=== PATIENT | female | born 1970 | race Two or more races ===

== ENCOUNTER 2018-12-09 19:40 | Observation (INO) | payer BC ==
--- NOTE | 2018-12-09 21:27 | ULT ---
Right upper quadrant ultrasound: 12/09/2018 COMPARISON: None HISTORY: Right upper quadrant pain TECHNIQUE: Multiplanar grayscale sonographic imaging of the right upper quadrant obtained. FINDINGS: Imaged pancreas unremarkable, partially obscured by bowel gas. No focal liver lesion or int rahepatic biliary dilatation. Right kidney measures 12.7 cm in craniocaudal dimension and demonstrates no stone, hydronephrosis, or mass. There is a prominent shadowing stone within the gallbladder lumen measuring 3.4 cm. The common bile d uct measures 4 mm, within normal limits. The gallbladder is difficult to visualize on this examination secondary to body habitus and shadowing stone. There is probable mild gallbladder wall thickening measuring in the 4-5 mm range. The director internal control reports a positive Ramos's sign. IMPRESSION: Cholelithiasis with probable gallbladder wall thickening and positive Ramos's sign are s uspicious for acute cholecystitis.
[2018-12-09] MEDS ORDERED: Morphine 4 MG/ML VIAL ONE (22:28)
[2018-12-09] MEDS ORDERED: Piperacillin/Tazobactam 3.375 GM VIAL ONE (22:29)
[2018-12-09] MEDS ORDERED: Ondansetron ODT 4 MG TAB SL PRN (23:34)
[2018-12-09] MEDS ORDERED: Ondansetron PF 4 MG/2 ML Vial IVP PRN (23:34)
[2018-12-09] MEDS ORDERED: Morphine 4 MG/ML VIAL SLOW IVP PRN (23:35)
[2018-12-09 23:53] LABS: #Eosinphils 0.1 thou/uL (0.0-0.7); #Lymphocytes 1.7 thou/uL (1.20-3.40); #Monocytes 0.6 thou/uL (0.11-0.59); #Neutrophils 7.9 thou/uL (1.40-6.50); %Basophils 0.3 % (0.0-1.0); %Eosinophils 1.1 % (0.0-10.0); %Lymphocytes 16.4 % (21.0-51.0); %Monocytes 5.7 % (0.0-10.0); %Neutrophils 76.6 % (42.0-75.0); Hemoglobin 13.6 g/dL (12.0-16.0); Mean Corpuscular HGB CONC 33.4 g/dL (32.0-36.0); Mean Corpuscular Hemoglobin 29.3 pg (27.0-31.0); Mean Corpuscular Volume 87.7 fL (78.0-98.0); Mean Platelet Volume 7.3 fL (7.4-10.4); Platelet Count 387 thou/uL (130-400); RBC Distribution Width 12.1 % (11.5-14.5); Red Blood Cell (RBC) Count 4.63 mill/uL (4.20-5.40); White Blood Cell (WBC) Count 10.2 thou/uL (4.8-10.8)
[2018-12-10 00:05] VITALS: BMI 56.4
[2018-12-10 00:06] LABS: Albumin 3.7 g/dL (3.5-5.0)
[2018-12-10 00:07] LABS: Chloride 104 mmol/L (98-107); Potassium 3.7 mmol/L (3.5-5.1); Sodium 136 mmol/L (136-145)
[2018-12-10 00:08] LABS: Calcium 9.4 mg/dL (7.8-10.44); Glucose 85 mg/dL (70-105)
[2018-12-10 00:09] LABS: Globulin 3.6 g/dL (2.4-3.5); Protein, Total 7.3 g/dL (6.0-8.3)
[2018-12-10 00:10] LABS: Anion Gap 15 mmol/L (10-20); Bilirubin, Total 0.8 mg/dL (0.2-1.2); Carbon Dioxide 21 mmol/L (22-29)
[2018-12-10 00:11] LABS: Alkaline Phosphatase 104 U/L (40-150)
[2018-12-10] MEDS: Sodium Chloride 0.9% 1,000 ML IV SCH ×2 (00:11→04:21)
[2018-12-10 00:12] LABS: Calc. Creatinine Clearance 272 mL/min (70-130); Estimated GFR-MDRD Greater than 90
[2018-12-10 00:13] LABS: AST (SGOT) 20 U/L (5-34); BUN (Urea Nitrogen) 9 mg/dL (7.0-18.7)
[2018-12-10 00:14] LABS: ALT (SGPT) 21 U/L (8-55); Lipase 9 U/L (8-78)
[2018-12-10] MEDS ORDERED: MEROPENEM 1 GM/50 ML 1 GM in Premix Bag 1 BAG IVPB SCH (07:30)
[2018-12-10] MEDS ORDERED: Acetaminophen 1,000 MG in Premix Bag 1 BAG IVPB PRN (07:44)
[2018-12-10] MEDS ORDERED: Ondansetron PF 4 MG/2 ML Vial IVP PRN (07:44)
[2018-12-10] MEDS ORDERED: Morphine 4 MG/ML VIAL SLOW IVP PRN (07:44)
[2018-12-10] MEDS: Morphine 2 MG/ML SYRINGE SLOW IVP PRN (08:32)
[2018-12-10] MEDS: D5 1/2 NS w/20 mEq KCL 1,000 ML IV SCH ×2 (08:37→16:43)
[2018-12-10 09:07] LABS: #Eosinphils 0.1 thou/uL (0.0-0.7); #Lymphocytes 1.4 thou/uL (1.20-3.40); #Monocytes 0.5 thou/uL (0.11-0.59); #Neutrophils 5.9 thou/uL (1.40-6.50); %Basophils 0.3 % (0.0-1.0); %Eosinophils 1.6 % (0.0-10.0); %Lymphocytes 17.5 % (21.0-51.0); %Monocytes 6.3 % (0.0-10.0); %Neutrophils 74.2 % (42.0-75.0); Hemoglobin 12.9 g/dL (12.0-16.0); Mean Corpuscular HGB CONC 33.4 g/dL (32.0-36.0); Mean Corpuscular Hemoglobin 29.1 pg (27.0-31.0); Mean Corpuscular Volume 87.1 fL (78.0-98.0); Mean Platelet Volume 6.9 fL (7.4-10.4); Platelet Count 380 thou/uL (130-400); Red Blood Cell (RBC) Count 4.42 mill/uL (4.20-5.40); White Blood Cell (WBC) Count 7.9 thou/uL (4.8-10.8)
[2018-12-10 09:33] LABS: ALT (SGPT) 21 U/L (8-55); AST (SGOT) 16 U/L (5-34); Albumin 3.6 g/dL (3.5-5.0); Anion Gap 11 mmol/L (10-20); BUN (Urea Nitrogen) 8 mg/dL (7.0-18.7); Bilirubin, Total 0.8 mg/dL (0.2-1.2); Calc. Creatinine Clearance 276 mL/min (70-130); Calcium 9.2 mg/dL (7.8-10.44); Carbon Dioxide 24 mmol/L (22-29); Chloride 106 mmol/L (98-107); Estimated GFR-MDRD Greater than 90; Globulin 3.5 g/dL (2.4-3.5); Glucose 86 mg/dL (70-105); Lipase 10 U/L (8-78); Potassium 3.3 mmol/L (3.5-5.1); Protein, Total 7.1 g/dL (6.0-8.3); Sodium 138 mmol/L (136-145)
[2018-12-10 09:39] LABS: Alkaline Phosphatase 98 U/L (40-150)
[2018-12-10] MEDS ORDERED: Succinylcholine Chloride 20 MG/ML 10 ml SYRINGE FS ONE (10:22)
[2018-12-10] MEDS ORDERED: Rocuronium Bromide 10 MG/ML (10ML VIAL) ONE (10:22)
[2018-12-10] MEDS ORDERED: Dexamethasone 20 MG/5 ML VIAL ONE (10:22)
[2018-12-10] MEDS ORDERED: PROPOFOL 200 MG/20 ML VIAL ONE (10:22)
[2018-12-10] MEDS ORDERED: Glycopyrrolate 0.2 MG/ML 5 ML SYRINGE ONE (10:22)
[2018-12-10] MEDS ORDERED: PHENYLEPHRINE-NS 100 MCG/ML 10 ML SYRINGE ONE (10:22)
[2018-12-10] MEDS ORDERED: Lidocaine 1% PF 5 ML VIAL ONE (10:22)
[2018-12-10] MEDS ORDERED: Ketorolac Tromethamine 30 MG/ML VIAL ONE (10:22)
[2018-12-10] MEDS ORDERED: Ondansetron PF 4 MG/2 ML Vial ONE (10:22)
[2018-12-10] MEDS ORDERED: Potassium Chloride 20 MEQ/100 ML PREMIX BAG IVPB SCH (10:45)
[2018-12-10] MEDS ORDERED: Potassium Chloride 20 MEQ in Premix Bag 1 BAG IVPB SCH (10:45)
--- NOTE | 2018-12-10 13:17 | HP ---
CHIEF COMPLAINT: Abdominal pain. HISTORY OF PRESENT ILLNESS: Ms. Kearney is a 48-year-old woman with a 1-week history of abdominal discomfort. She states that she has not been eating because when she eats, it makes the pain worse. The pain is underneath her ribcage on the right- hand side and sometimes radiates down into the central abdomen. She denies any vomiting or nausea or any fevers, although, she did have some chills on Thursday and . She was evaluated in the emergency room and found to have a mildly elevated white count, large gallstone in the gallbladder and some gallbladder wall thickening, and positive sonographic Ramos sign, and was admitted for antibiotics and short interval laparoscopic cholecystectomy. Since being admitted, her pain is better controlled with pain medications. She has not had any change in her bowel habits and is otherwise well. PAST MEDICAL HISTORY: Morbid obesity. PAST SURGICAL HISTORY: Tonsillectomy and tubal ligation. FAMILY HISTORY: Unknown because she is adopted. ALLERGIES: SHE HAS UNKNOWN REACTION TO PENICILLIN A CHILD AND ALSO HAS THROAT SWELLING WITH SHELLFISH. MEDICATIONS: She does not take any medications as an outpatient. She has tolerated meropenem and morphine in the hospital. REVIEW OF SYSTEMS: A 10-system review of system is negative except per HPI. PHYSICAL EXAMINATION: VITAL SIGNS: The patient was mildly tachycardic when she arrived in the ER, but heart rate has come down into the 80s. She has been afebrile with 96% room air saturations, and blood pressure is 114/76. GENERAL: Reveals a morbidly obese woman with a BMI of 56. She is not jaundiced or icteric. HEENT: Unremarkable. NECK: Supple without lymphadenopathy or thyroid nodules. HEART: Regular in its rate and rhythm without murmurs, rubs, or gallops. LUNGS: Clear to auscultation bilaterally. Heart and lung sounds are somewhat distant due to body habitus. ABDOMEN: Soft and nondistended. She is mildly tender to palpation in the infraumbilical area and the right upper quadrant, but does not exhibit rigidity, rebound, or guarding. No palpable masses or hernias. Her infraumbilical incision is well healed. EXTREMITIES: Warm and well perfused without edema. NEUROLOGIC: No focal deficits. PSYCHIATRIC: Alert, oriented, and appropriate. LABORATORY DATA: White count in her doctor's office was mildly elevated at 11, this has since come down to 7.9; hematocrit is 38.5. Potassium is slightly low at 3.3. LFTs and other electrolytes are normal. IMAGING: Gallbladder ultrasound showed a large stone in the gallbladder, some mild wall thickening, and a positive sonographic Ramos sign. ASSESSMENT: Cholecystitis and cholelithiasis. PLAN: Laparoscopic cholecystectomy. The patient's diagnosis and recommended treatment plan were discussed with her and her family. Inherent risks of surgery were also discussed. These include, but are not limited to, bleeding, infection , risks of anesthesia, damage to nearby structures including bowel, liver, bile duct and blood vessels, need for open surgery, need for other procedures. She understands and accepts these risks and wishes to proceed and has been posted for the OR later today. We will continue her antibiotics until the time of her operation. Job ID: [id number] MTDD
[2018-12-10] MEDS: MEROPENEM 1 GM/50 ML 1 GM in Premix Bag 1 BAG IVPB SCH ×2 (16:00→23:18)
[2018-12-10] MEDS ORDERED: Bupivacaine/Epinephrine 0.25% 30 ML VIAL ONE (16:28)
[2018-12-10] MEDS ORDERED: Fentanyl 100 MCG/2 ML VIAL ONE ×2 (16:52→19:37)
[2018-12-10] MEDS ORDERED: Promethazine HCl 25 MG/ML VIAL ONE (19:19)
[2018-12-10] MEDS ORDERED: Ondansetron HCl/PF 4 MG/2 ML Vial IVP PRN (19:20)
[2018-12-10] MEDS ORDERED: Morphine Sulfate 2 MG/ML SYRINGE SLOW IVP PRN (19:20)
[2018-12-10] MEDS ORDERED: Promethazine HCl 25 MG/ML VIAL IM PRN (19:20)
[2018-12-10] MEDS ORDERED: Promethazine HCl 25 MG/ML VIAL SLOW IVP PRN (19:20)
[2018-12-10] MEDS ORDERED: D5 1/2 NS w/20 mEq KCL 1,000 ML ONE (19:40)
[2018-12-11] MEDS: D5 1/2 NS w/20 mEq KCL 1,000 ML IV SCH ×2 (03:44→09:06)
[2018-12-11] MEDS: Morphine 2 MG/ML SYRINGE SLOW IVP PRN ×2 (03:44→11:12)
[2018-12-11] MEDS: MEROPENEM 1 GM/50 ML 1 GM in Premix Bag 1 BAG IVPB SCH (09:02)
[2018-12-11 12:03] VITALS: BP 119/82; TEMP 98.5
--- NOTE | 2018-12-13 14:44 | OP ---
DATE OF PROCEDURE: 12/10/2018 PROCEDURE: Laparoscopic cholecystectomy. PREOPERATIVE DIAGNOSES: Cholelithiasis and cholecystitis. POSTOPERATIVE DIAGNOSES: Cholelithiasis and cholecystitis. INDICATIONS FOR PROCEDURE: Ms. Kearney is a 48-year-old woman who went to the emergency with epigastric right upper quadrant pain. She was found to have gallstones, but no white count or elevated LFTs and followed up as an outpatient. She states that the pain took several days to resolve, but it is getting actually resolved. Recommendation was made to proceed with laparoscopic cholecystectomy for symptomatic relief. FINDINGS: Viable gallbladder with large stones, extensive omental adhesions over the entire lower half of the gallbladder indicating fibrosis of the neck suggesting it a chronic component. PROCEDURE: After informed consent was obtained and appropriate preoperative antibiotics administered. The patient was taken to the operating room. She was placed in supine position and general endotracheal anesthesia was administered. She was prepped and draped in the standard sterile fashion and local anesthesia infused through skin and subcutaneous tissues at the level of umbilicus. A transverse skin incision was made. The fascia was elevated. A Veress needle was placed into the abdominal cavity without difficulty. Carbon dioxide gas was insufflated to intraabdominal pressure of 15 which the patient tolerated well. The Veress needle was withdrawn and a ClearView port advanced under direct laparoscopic vision into the abdominal cavity, which was carefully examined. There was no evidence of Veress needle or trocar injury. The gallbladder was obscured by omentum. Local anesthesia was infused through skin and subcutaneous tissues at the epigastric, right upper quadrant, and left lateral abdominal site. Skin incision was made and trocars were placed under direct laparoscopic vision. The omentum was drawn anteriorly and the fundus identified, this was grasped and retracted superiorly and the omental adhesion was taken down through the avascular plane. On the lower half of the gallbladder was complete encasement of fat making identification of the wall difficult; therefore, all the fat was stripped downward and dissection carried out along the wall of gallbladder until the infundibulum was clearly identified, grasped and retracted laterally. The cystic duct and artery were then able to be identified and dissected free circumferentially and traced to their insertion in the gallbladder. A critical view of safety was obtained and the cystic duct and artery were clipped and divided between clips. The gallbladder was then dissected free of the gallbladder bed. Using hook electrocautery, the gallbladder was placed into an EndoCatch bag and drawn out through the epigastric incision after crushing and removing a large stone. The epigastric trocar was then replaced and the operative site examined. The clips were in good position clearly across the cystic duct and artery stumps. There was no bleeding and no leakage of bile. Wound was easily irrigated to clear. The epigastric trocar was removed and the fascial defect closed with a 0 GraNee under direct laparoscopic vision. The right upper quadrant and right lateral trocars were then removed and hemostasis verified. The carbon dioxide gas was allowed to desufflate through the umbilical trocar, which was then removed. Additional local anesthesia was induced by postoperative pain control and skin incisions were closed with 4-0 Monocryl sutures. Dermabond dressings were placed and the patient was extubated to recovery room in good condition. Estimated blood loss was minimal. There were no complications. Specimen is gallbladder and contents. Job ID: [id number]
== END 2018-12-11 13:12 | disposition home or self-care (01) ==
LOC: ERS 19:40 → SURG A 23:20
PROVIDERS: ADMIT Surgery; ATTEND Surgery
PROC: 0FT44ZZ Resection of Gallbladder, Percutaneous Endoscopic Approach (ICD-10-PCS; principal; 2018-12-11)
DX: K80.10 Calculus of gallbladder with chronic cholecystitis without obstruction (principal); K66.0 Peritoneal adhesions (postprocedural) (postinfection); E66.01 Morbid (severe) obesity due to excess calories; Z68.43 Body mass index [BMI] 50.0-59.9, adult; Z88.0 Allergy status to penicillin; Z91.013 Allergy to seafood; Z79.899 Other long term (current) drug therapy
CPT/HCPCS: 36415; 76705; 80053; 83690; 85025; 88304; 96361; 96365; 96375; 96376; G0378; J1100; J1885; J2001; J2185; J2270; J2405; J2543; J2550; J2704; J3010; J3480

== ENCOUNTER 2019-06-15 09:23 | Outpatient (CLI) | payer BC ==
--- NOTE | 2019-06-15 10:25 | RAD ---
LUMBAR SPINE TWO VIEWS: HISTORY: Low back pain. FINDINGS: Mild degenerative changes are seen. No fracture, subluxation or bony destruction is identified. POS: DIONICIO
--- NOTE | 2019-06-15 10:32 | RAD ---
THORACIC SPINE 3 VIEWS: HISTORY: Back pain. FINDINGS/IMPRESSION: Degenerative changes are present. No fracture, subluxation, or bony destruction is identified. POS: DIONICIO
== END 2019-06-15 09:24 | disposition home or self-care (01) ==
LOC: SCSRAD 09:23
PROVIDERS: ATTEND Family Medicine
DX: S39.012S Strain of muscle, fascia and tendon of lower back, sequela (principal); S23.3XXD Sprain of ligaments of thoracic spine, subsequent encounter; M47.816 Spondylosis without myelopathy or radiculopathy, lumbar region; M47.814 Spondylosis without myelopathy or radiculopathy, thoracic region
CPT/HCPCS: 72072; 72100

== ENCOUNTER 2024-07-01 06:07 | Day surgery (SDC) | payer BC ==
[2024-06-30 14:24] VITALS: BMI 59.5
[2024-07-01] MEDS ORDERED: Lidocaine 2% PF 5 ML VIAL ONE (07:15)
[2024-07-01] MEDS ORDERED: PROPOFOL 40 ML ONE (07:15)
[2024-07-01] MEDS ORDERED: PROPOFOL 20 ML ONE ×2 (08:06→08:20)
[2024-07-01] MEDS ORDERED: Dexamethasone 20 MG/5 ML VIAL ONE (08:07)
[2024-07-01] MEDS ORDERED: Ondansetron PF 4 MG/2 ML Vial ONE (08:07)
[2024-07-01] MEDS ORDERED: PHENYLEPHRINE-NS 100 MCG/ML 10 ML SYRINGE ONE (08:14)
== END 2024-07-01 10:10 | disposition home or self-care (01) ==
LOC: SDC 06:07
PROVIDERS: ATTEND Internal Medicine
PROC: 0DBH8ZZ Excision of Cecum, Via Natural or Artificial Opening Endoscopic (ICD-10-PCS; principal; 2024-07-01)
PROC: 0DBK8ZZ Excision of Ascending Colon, Via Natural or Artificial Opening Endoscopic (ICD-10-PCS; principal; 2024-07-01)
PROC: 0DBN8ZZ Excision of Sigmoid Colon, Via Natural or Artificial Opening Endoscopic (ICD-10-PCS; principal; 2024-07-01)
DX: Z12.11 Encounter for screening for malignant neoplasm of colon (principal); D12.0 Benign neoplasm of cecum; D12.2 Benign neoplasm of ascending colon; K63.5 Polyp of colon; K57.30 Diverticulosis of large intestine without perforation or abscess without bleeding; J45.909 Unspecified asthma, uncomplicated; F32.A Depression, unspecified; M19.90 Unspecified osteoarthritis, unspecified site; E66.9 Obesity, unspecified; K21.9 Gastro-esophageal reflux disease without esophagitis; E06.3 Autoimmune thyroiditis; F41.9 Anxiety disorder, unspecified; Z98.51 Tubal ligation status; Z90.89 Acquired absence of other organs; Z90.49 Acquired absence of other specified parts of digestive tract; Z98.890 Other specified postprocedural states; Z88.0 Allergy status to penicillin; Z91.013 Allergy to seafood; Z79.890 Hormone replacement therapy
CPT/HCPCS: 88305; J2704